=== PATIENT | female | born 1985 | race Caucasian/White ===

== ENCOUNTER 2016-07-05 17:01 | Emergency (ER) | payer MEDICAID ==
[~2016-07-05] VITALS: Ht 162.6 cm; Wt 93.4 kg
[~2016-07-05 17:01] MED LIST: ONDA4TAB5 PO
== END 2016-07-05 19:30 | disposition left against medical advice (07) ==
LOC: ER 17:10
DX: M79.672 Pain in left foot (principal); Z53.21 Procedure and treatment not carried out due to patient leaving prior to being seen by health care provider